=== PATIENT | male | born 1955 | race Caucasian/White ===

== ENCOUNTER 2023-01-09 00:21 | Day surgery (SDC) | payer MEDICARE, SELFPAY ==
[2023-01-04 11:35] VITALS: BMI 42.3
--- NOTE | 2023-01-04 11:49 | PC.NURSE ---
Report to the Outpatient Waiting Room, entrance under the green pavilion located off [facility], at time __8:30AM on date ___01/09/23____. Planned Procedure Time: ___9:30AM . Time changes happen often and if your time is changed the preop area will call you the afternoon before. - You and your visitor will be asked to self-screen and do not enter if you have any COVID symptoms. - Only one visitor is requested with a max of two and NO children visitors are allowed at this time. - The patient visitor may be requested to leave or wait in car when not with patient due to distancing restrictions. - A mask is optional within the hospital at this time. Patients may have LIGHT BREAKFAST MORNING OF SURGERY. Take the following medications with a SIP of water the morning of surgery: ____AM MEDICATION DO NOT STOP ANY OF YOUR OTHER PRESCRIPTION MEDICATIONS PRIOR TO SURGERY ?EXCEPT THE FOLLOWING Medications to discontinue per physician ____NONE Date to take last dose Please no make-up, nail divehi, hairspray, perfume, deodorant, or body powder the day of surgery. No jewelry (including any body piercings) or valuables the day of surgery, leave them at home. Please take a shower or bath the night before, or the morning of, surgery with an antibacterial soap. Wear comfortable, loose fitting clothing. Children are encouraged to wear pajamas. - Jewelry must be removed prior to entering the operating room. Rings and piercings that are not removed may be cut off. - The hospital will not accept responsibility for valuables. - Please leave all valuables, including medications, at home the day of surgery. MAY DRIVE HOME OR HAVE A PHONE TRIAGE SPECIALIST. Follow any additional instructions given to you from your surgeon. If you or anyone in your household have experienced Covid symptoms in the past week, please notify your surgeon or the nurse liaison at the phone number below for possible testing. Telephone instructions given to __PATIENT and asked if any additional questions and then verbalized understanding. Patient advised to call surgeon office or pre surgery nurse liaison [phone] if any additional questions.
[2023-01-09] VITALS (11 sets, daily range): BP systolic 130–169; BP diastolic 65–92; PULSE 69–78; RESP 16–18; TEMP 36.7; O2SAT 94–100
--- NOTE | 2023-01-09 07:17 | WPDHPUPDATE1 ---
History and Physical Update Update Date/Time: 01/09/23 07:17 History and Physical has been reviewed, including an updated exam of the patient. There are NO changes in the patient's condition. Risks, benefits, and alternatives have been discussed and questions answered. Patient agrees to proceed with procedure.
[2023-01-09] MEDS: LIDO 1%/EPINEPHRINE 1:100,000 20 ML VIAL 12 ML INFILTRATE (08:54)
[2023-01-09] MEDS: BACITRACIN OINTMENT 15 GM TUBE 1 APPLIC TOPICAL (10:10)
--- NOTE | 2023-01-09 10:34 | W.PM.PROC2 ---
Procedure Note - Detailed Date of Procedure 01/09/23 Pre-op Diagnosis BCCA left helix, neopl unspec left shoulder Post-op Diagnosis Same Procedure Performed 3 cm excision of basal cell carcinoma left helix with frozen section and complex repair 5 cm 2 cm excision of pigmented neoplasm of the left shoulder with permanent section and intermediate repair 3.5 cm Surgeon Elan Schmidt MD Anesthesia Local Description of Procedure The scab site on the left helix and the pigmented area on the left shoulder were marked on the patient was consented in the holding area. This patient was taken to the operating room where he was placed supine on the operating table. The left shoulder in the left ear and face and neck were prepped and draped in usual fashion. A time-out was held and confirmed. The sites were carefully marked for excision using a skin marker. Both areas were infiltrated with 1% lidocaine with epinephrine to provide adequate anesthesia. The lesion from the left ear was excised 1st using a 15 blade to the level of the perichondrium. Sharp tip scissors were used to separate the specimen from the cartilage. The most superior aspect was marked with the suture representing 12 o'clock. The specimen was sent to pathology. The pathologist reported that the lesion is basal cell carcinoma and that the margins were free tumor. In the interim the lesion from the left shoulder was taken. This was incised with a 15. blade through full-thickness of skin to the subcutaneous tissue. The specimen was taken off of with scissors. It was sent for permanent section. The wound margins were undermined almost a cm in all directions and the closure was accomplished easily with intradermal 3-0 Vicryl sutures and the running 5 0 nylon. Upon receipt of the pathologist report that our margins were free on the helix we proceeded to prepare that area for closure. This involved undermining skin from the anterior aspect of the helical cartilage. We then removed the 2-4 mm by 1.5 cm strip of cartilage along the anterior aspect. This closure also required extensive undermining on the superior inferior and posterior aspect of the ear up to 2 cm in all directions. The skin margins were then closed with a running 5 0 nylon suture. The patient was discharged home with instructions in wound care and follow-up. Prescription hydrocodone/APAP 5/325 4 was e-prescribed. Estimated Blood Loss 2 Drains No Packing No Pathology Yes Condition Stable Disposition Same day
== END 2023-01-09 10:40 | disposition home or self-care (01) ==
PROVIDERS: PCP Family Medicine; Visit Provider Plastic Surgery
PROC: (CPT 11643; principal; 2023-01-09 09:30)
DX: C44.219 Basal cell carcinoma of skin of left ear and external auricular canal (principal); C43.62 Malignant melanoma of left upper limb, including shoulder
CPT/HCPCS: 11643; 13152; 11602; 12032; 88305; 88331; A9270